=== PATIENT | female | born 1965 | race Two or more races ===

== ENCOUNTER 2021-06-17 15:01 | Emergency (ER) | payer OTHER ==
[~2021-06-17] VITALS: Ht 160 cm; Wt 110.0 kg
[2021-06-17] MEDS ORDERED: IPRATRPIUM/ALBUTEROL 0.5/2.5MG 3 ML NEBU. NEB ONE (16:30)
[2021-06-17] MEDS ORDERED: methylPREDNISolone SOD SUCC PF 125 MG/2 ML VIAL. IV ONE (16:30)
--- NOTE | 2021-06-17 16:30 | PHYS DOC ---
Past Medical History Past Medical History: Anxiety, Asthma, Depression Past Surgical History: Appendectomy, Cholecystectomy, Hysterectomy Additional Past Surgical Histo: BREAST REDUCTION Smoking Status: Never Smoker Alcohol Use: None Drug Use: None General Adult EDM: Chief Complaint: SHORTNESS OF BREATH HPI: HPI: Patient is a 56-year-old female that presents today with shortness of air. Patient states she is from [place] and she is appear visiting, she states that over the last couple of days she has had increased shortness of breath and feels that her asthma is acting up. Patient states that today she has had 4 albuterol nebulizer treatments and that has not helped her shortness of air, she denies fever and chills, or chest pain. Patient does state that approximately 1 month ago she was on Augmentin for a sinus infection through her primary care physician. Review of Systems: Review of Systems: Constitutional: Denies fever or chills. [] Eyes: Denies change in visual acuity. [] HENT: Denies nasal congestion or sore throat. [] Respiratory: shortness of breath. [] Cardiovascular: Denies chest pain or edema. [] GI: Denies abdominal pain, nausea, vomiting, bloody stools or diarrhea. [] : Denies dysuria. [] Musculoskeletal: Denies back pain or joint pain. [] Integument: Denies rash. [] Neurologic: Denies headache, focal weakness or sensory changes. [] Endocrine: Denies polyuria or polydipsia. [] Lymphatic: Denies swollen glands. [] Psychiatric: Denies depression or anxiety. [] Heart Score: C/O Chest Pain: No Risk Factors: Risk Factors: DM, Current or recent (<one month) smoker, HTN, HLP, family history of CAD, obesity. Risk Scores: Score 0 - 3: 2.5% MACE over next 6 weeks - Discharge Home Score 4 - 6: 20.3% MACE over next 6 weeks - Admit for Clinical Observation Score 7 - 10: 72.7% MACE over next 6 weeks - Early Invasive Strategies Current Medications: Current Medications Medications (Trade) Dose Ordered Sig/Mitul Start Time Stop Time Status Last Admin Dose Admin Albuterol/ Ipratropium (Duoneb) 3 ml 1X ONCE 06/17/21 16:30 06/17/21 16:31 UNV Methylprednisolone Sodium Succinate (SOLU-Medrol 125MG VIAL) 125 mg 1X ONCE 06/17/21 16:30 06/17/21 16:31 UNV Physical Exam: PE: Constitutional: Well developed, well nourished, mild distress, non-toxic appearance. [] HENT: Normocephalic, atraumatic, bilateral external ears normal, oropharynx moist, no oral exudates, nose normal. [] Eyes: PERRLA, EOMI, conjunctiva normal, no discharge. [] Neck: Normal range of motion, no tenderness, supple, no stridor. [] Cardiovascular:Heart rate regular rhythm, no murmur [] Lungs & Thorax: Increased work of breathing noted, bilateral lungs wheezes throughout Abdomen: Bowel sounds normal, soft, no tenderness, no masses, no pulsatile masses. [] Skin: Warm, dry, no erythema, no rash. [] Back: No tenderness, no CVA tenderness. [] Extremities: No tenderness, no cyanosis, no clubbing, ROM intact, no edema. [] Neurologic: Alert and oriented X 3, normal motor function, normal sensory function, no focal deficits noted. [] Psychologic: Affect normal, judgement normal, mood normal. [] Current Patient Data: Labs: Laboratory Tests Test 06/17/21 17:10 06/17/21 17:30 White Blood Count 8.9 x10^3/uL Red Blood Count 4.94 x10^6/uL Hemoglobin 12.9 g/dL Hematocrit 40.5 % Mean Corpuscular Volume 82 fL Mean Corpuscular Hemoglobin 26 pg Mean Corpuscular Hemoglobin Concent 32 g/dL Red Cell Distribution Width 16.9 % Platelet Count 274 x10^3/uL Neutrophils (%) (Auto) 59 % Lymphocytes (%) (Auto) 27 % Monocytes (%) (Auto) 6 % Eosinophils (%) (Auto) 7 % Basophils (%) (Auto) 2 % Neutrophils # (Auto) 5.2 x10^3/uL Lymphocytes # (Auto) 2.4 x10^3/uL Monocytes # (Auto) 0.5 x10^3/uL Eosinophils # (Auto) 0.6 x10^3/uL Basophils # (Auto) 0.1 x10^3/uL Sodium Level 143 mmol/L Potassium Level 5.2 mmol/L Chloride Level 106 mmol/L Carbon Dioxide Level 25 mmol/L Anion Gap 12 Blood Urea Nitrogen 13 mg/dL Creatinine 0.9 mg/dL Estimated GFR (Cockcroft-Gault) 64.8 BUN/Creatinine Ratio 14 Glucose Level 101 mg/dL Calcium Level 8.3 mg/dL Total Bilirubin 0.4 mg/dL Aspartate Amino Transf (AST/SGOT) 28 U/L Alanine Aminotransferase (ALT/SGPT) 28 U/L Alkaline Phosphatase 135 U/L Troponin I High Sensitivity < 4 ng/L JL-Ibn-M-Type Natriuretic Peptide 49 pg/mL Total Protein 6.8 g/dL Albumin 3.6 g/dL Albumin/Globulin Ratio 1.1 Influenza Type A Antigen Negative Influenza Type B Antigen Negative SARS-CoV-2 Antigen (Rapid) Negative Current Medications Medications (Trade) Dose Ordered Sig/Mitul Route PRN Reason Start Time Stop Time Status Last Admin Dose Admin Albuterol/ Ipratropium (Duoneb) 3 ml 1X ONCE NEB 06/17/21 16:30 06/17/21 17:28 DC 06/17/21 16:00 Methylprednisolone Sodium Succinate (SOLU-Medrol 125MG VIAL) 125 mg 1X ONCE IV 06/17/21 16:30 06/17/21 17:28 DC 06/17/21 17:24 Albuterol Sulfate (Ventolin Neb Soln) 2.5 mg 1X ONCE NEB 06/17/21 17:45 06/17/21 17:46 DC 06/17/21 17:44 Vital Signs: Vital Signs Date Time Temp Pulse Resp B/P (MAP) Pulse Ox O2 Delivery O2 Flow Rate FiO2 06/17/21 18:45 99 25 168/86 (113) 98 Room Air 06/17/21 18:15 98.1 96 22 134/73 (93) 98 Room Air 98.1 06/17/21 17:59 98 06/17/21 17:15 98.1 86 24 124/77 (93) 98 Room Air 98.1 06/17/21 16:45 98.1 88 26 115/66 (82) 97 Room Air 98.1 06/17/21 16:03 96 06/17/21 15:08 98.1 102 16 127/74 (91) 99 Room Air 98.1 Vital Signs Date Time Temp Pulse Resp B/P (MAP) Pulse Ox O2 Delivery O2 Flow Rate FiO2 06/17/21 15:08 98.1 102 16 127/74 (91) 99 Room Air 98.1 EKG: EKG: EKG done at [address] Amor at 1718 shows sinus rhythm with no ectopy at a rate of 86 with a PA interval of 194 ms with a QTC of 467. No STEMI [] Radiology/Procedures: Radiology/Procedures: REASON: SOA PROCEDURE: CHEST AP ONLY EXAM: Chest, single view. HISTORY: Shortness of air. COMPARISON: None. FINDINGS: A frontal view of the chest is obtained. There is no infiltrate, pleural effusion or pneumothorax. The heart is normal in size. IMPRESSION: No acute pulmonary finding. Electronically signed by: Jennifer Sanchez MD (06/17/2021 4:33 PM) [facility] [] Course & Med Decision Making: Course & Med Decision Making Pertinent Labs and Imaging studies reviewed. (See chart for details) 1730 reassessment of patient shows decreased work of breathing noted, oxygenation level is 98% at this time, lungs continue to have scattered wheezes throughout. Will reorder another breathing treatment. 1845 reassessment of patient shows decreased work of breathing respiratory rate 18-20, oxygenation level is again 98% lungs have scant wheezes noted. Did discuss with patient outpatient management, she is agreeable to taking by mouth prednisone over the next 5 days, she did states she was out of her albuterol nebulizer solution and I will get those reordered for her, I did inform her to start taking a antihistamine such as Claritin Zyrtec or Corinne on a regular basis due to spring time allergens in the air. Patient verbalizes understanding of this agreeable to the plan of care patient was given strict return precautions to follow-up if she has increased work of breathing, increased wheezing even with the use of the albuterol, or any other concerns you may have. Dragon Disclaimer: Dragon Disclaimer: This electronic medical record was generated, in whole or in part, using a voice recognition dictation system. Departure Departure Impression: Primary Impression: Asthma exacerbation Qualified Codes: J45.901 - Unspecified asthma with (acute) exacerbation Disposition: HOME / SELF CARE / HOMELESS Condition: STABLE Patient Instructions: Asthma, Adult Additional Instructions: Albuterol nebulizer treatment 1 every 4 hours as needed for asthma and wheezing Prednisone 50 mg daily for 5 days Return here to the emergency department for increased shortness of breath, wheezing that is not improved with the albuterol treatments, or decreased mental status. Follow-up with your primary care physician in [place] as soon as possible for further management of your asthma. Scripts Albuterol Sulfate (ALBUTEROL SULFATE NEB SOLN) 2.5 Mg/3 Ml Vial.neb 1 VIAL NEB PRN Q4HRS, #25 VIAL Prov: LEAH BENAVIDES [employer] 06/17/21 Prednisone (PREDNISONE) 50 Mg Tablet 1 TAB PO DAILY, #5 TAB Prov: LEAH BENAVIDES [employer] 06/17/21 LEAH BENAVIDES APRN Jun 17, 2021 16:30
--- NOTE | 2021-06-17 16:35 | RAD ---
EXAM: Chest, single view. HISTORY: Shortness of air. COMPARISON: None. FINDINGS: A frontal view of the chest is obtained. There is no infiltrate, pleural effusion or pneumo thorax. The heart is normal in size. IMPRESSION: No acute pulmonary finding. Electronically signed by: Jennifer Sanchez MD (06/17/2021 4:33 PM) [facility]
--- NOTE | 2021-06-17 17:13 | EKG ---
[facility] [address] [place] [address] Test Date: 2021-06-17 Test Time: 17:00:50 Pat Name: LAZARO QUAN Department: Room: Gender: F Manager Target: : 1965 Requested By: LEAH BENAVIDES Order Number: [id number] Reading MD: Measurements Intervals Molino Rate: 86 P: 26 MD: 194 QRS: 24 QRSD: 88 T: 30 QT: 388 QTc: 467 Interpretive Statements SINUS RHYTHM NORMAL ECG RI6.02 No previous ECG available for comparison
[2021-06-17 17:25] LABS: BASO # 0.1 x10^3/uL (0.0-0.2); BASO % 2 % (0-3); EOS # 0.6 x10^3/uL (0.0-0.7); EOS % 7 % (0-3); HEMATOCRIT 40.5 % (36.0-47.0); HEMOGLOBIN 12.9 g/dL (12.0-15.5); LYMPH # 2.4 x10^3/uL (1.0-4.8); LYMPH % 27 % (24-48); MEAN CORPUSCULAR HEMOGLOBIN 26 pg (25-35); MEAN CORPUSCULAR HGB CONC 32 g/dL (31-37); MEAN CORPUSCULAR VOLUME 82 fL (79-100); MONO # 0.5 x10^3/uL (0.0-1.1); MONO % 6 % (0-9); NEUT # 5.2 x10^3/uL (1.8-7.7); NEUT % 59 % (31-73); PLATELET COUNT 274 x10^3/uL (140-400); RED BLOOD COUNT 4.94 x10^6/uL (3.50-5.40); RED CELL DISTRIBUTION WIDTH 16.9 % (11.5-14.5); WHITE BLOOD COUNT 8.9 x10^3/uL (4.0-11.0)
[2021-06-17 17:40] LABS: CALCIUM 8.3 mg/dL (8.5-10.1); CREATININE 0.9 mg/dL (0.6-1.0); GFR 64.8; POTASSIUM 5.2 mmol/L (3.5-5.1)
[2021-06-17 17:45] LABS: ALBUMIN 3.6 g/dL (3.4-5.0); ALBUMIN/GLOBULIN RATIO 1.1 (1.0-1.7); TOTAL BILIRUBIN 0.4 mg/dL (0.2-1.0); TOTAL PROTEIN 6.8 g/dL (6.4-8.2)
[2021-06-17] MEDS ORDERED: ALBUTEROL SULFATE 2.5 MG/3 ML NEBU. NEB ONE (17:45)
[2021-06-17 18:08] LABS: INFLUENZA A PATIENT NEGATIVE (NEGATIVE); INFLUENZA B PATIENT NEGATIVE (NEGATIVE)
[2021-06-17 18:45] VITALS: BP 168/86
[2021-06-17] MEDS ORDERED: PRED50TA PO (18:56)
[2021-06-17] MEDS ORDERED: ALBU2.5V5 NEB (18:56)
== END 2021-06-17 19:09 | disposition home or self-care (01) ==
LOC: ER 15:01
DX: J45.901 Unspecified asthma with (acute) exacerbation (principal); Z20.822 Contact with and (suspected) exposure to COVID-19
CPT/HCPCS: 71045; 80053; 83880; 84484; 85025; 87428; 93005; 94640; 96374; 99285; C9803; J2930; J7613; U0003